=== PATIENT | male | born 1950 | race Caucasian/White ===

== ENCOUNTER → 2023-12-27 06:35 | Outpatient (REF) | payer OTHER, SELFPAY | LOC: RCS 06:35 | PROVIDERS: ATTENDING PHYSICIAN Internal Medicine Cardiovascular Disease; FAMILY PHYSICIAN Family Medicine | DX: Z01.810 Encounter for preprocedural cardiovascular examination (principal); R94.31 Abnormal electrocardiogram [ECG] [EKG] | CPT/HCPCS: 78452; 93017; A9500; J2785 ==